=== PATIENT | female | born 1990 | race Two or more races ===

== ENCOUNTER 2019-11-27 19:37 | Emergency (ER) | payer OTHER ==
[~2019-11-27] VITALS: Ht 160 cm; Wt 72.6 kg
[2019-11-27 20:04] VITALS: Ht 160 cm; Wt 72.6 kg
[2019-11-27 21:04] VITALS: BP 121/71
== END 2019-11-27 21:04 | disposition home or self-care (01) ==
LOC: ED 19:37
DX: S80.812A Abrasion, left lower leg, initial encounter (principal); S80.811A Abrasion, right lower leg, initial encounter; Z88.2 Allergy status to sulfonamides; V43.52XA Car driver injured in collision with other type car in traffic accident, initial encounter; W22.11XA Striking against or struck by driver side automobile airbag, initial encounter; Y93.I9 Activity, other involving external motion; Y92.413 State road as the place of occurrence of the external cause; Y99.8 Other external cause status
CPT/HCPCS: 90715